=== PATIENT | female | born 1980 | race Caucasian/White ===

== ENCOUNTER 2024-07-24 06:24 | Day surgery (SDC) | payer OTHER, SELFPAY | END 2024-07-24 15:51 | disposition home or self-care (01) | LOC: GI 06:24 | PROVIDERS: ATTENDING PHYSICIAN Internal Medicine Gastroenterology | DX: Z12.11 Encounter for screening for malignant neoplasm of colon (principal); D12.2 Benign neoplasm of ascending colon; K63.89 Other specified diseases of intestine; K57.30 Diverticulosis of large intestine without perforation or abscess without bleeding; K64.8 Other hemorrhoids | CPT/HCPCS: 45385; 88305 ==

== ENCOUNTER 2025-01-22 06:13 | Day surgery (SDC) | payer SELFPAY ==
[2025-01-22 06:30] VITALS: BP 120/70
[2025-01-22] MEDS: TYLENOL 1000 MG PO (06:38)
[2025-01-22] MEDS: NORMOSOL-R/PLASMALYTE-A 1000 IV (06:39)
[2025-01-22 06:45] VITALS: BMI 22.6
[2025-01-22 08:25] VITALS: BP 123/73
[2025-01-22 08:30] VITALS: BP 115/75
== END 2025-01-22 09:00 | disposition home or self-care (01) ==
LOC: SDS 06:13
PROVIDERS: ATTENDING PHYSICIAN Surgery
DX: K60.2 Anal fissure, unspecified (principal); K64.9 Unspecified hemorrhoids
CPT/HCPCS: 46261; 88304

== ENCOUNTER 2025-03-01 06:44 | Day surgery (SDC) | payer BC, SELFPAY ==
[2025-03-01 13:40] VITALS: BMI 21.3
[2025-03-01 13:45] VITALS: BP 121/66
[2025-03-01] MEDS: NORMOSOL-R/PLASMALYTE-A 1000 IV (14:05)
[2025-03-01] MEDS: TYLENOL 1000 MG PO (14:06)
[2025-03-01 15:23] VITALS: BP 108/64; BP 121/66
[2025-03-01 15:38] VITALS: BP 109/64
[2025-03-01 15:45] VITALS: BP 108/72
[2025-03-01 16:00] VITALS: BP 110/72
[2025-03-01 16:15] VITALS: BP 121/78
== END 2025-03-01 16:30 | disposition home or self-care (01) ==
LOC: SDS 06:44
PROVIDERS: ATTENDING PHYSICIAN Surgery
DX: K61.2 Anorectal abscess (principal)
CPT/HCPCS: 46050; J1335